=== PATIENT | male | born 1985 | race Caucasian/White ===

== ENCOUNTER 2018-02-12 09:11 | Inpatient (IN) | payer MEDICAID ==
[~2018-02-12] VITALS: Ht 180.3 cm; Wt 79.5 kg
[2018-02-12 09:56] LABS: BASOPHILS # (AUTO) 0.1 X10'3 (0-0.2); BASOPHILS % (AUTO) 0.6 % (0-1); EOSINOPHILS # (AUTO) 0.2 X10'3 (0-0.9); EOSINOPHILS % (AUTO) 1.8 % (0-6); HEMATOCRIT 44.7 % (42.0-52.0); LYMPHOCYTES # (AUTO) 1.1 X10'3 (1.1-4.8); LYMPHOCYTES % (AUTO) 12.4 % (21-51); MEAN CORPUSCULAR HEMOGLOBIN 30.3 PG (27.0-31.0); MEAN CORPUSCULAR HGB CONC 33.6 % (33.0-36.5); MEAN CORPUSCULAR VOLUME 90.3 FL (78-98); MEAN PLATELET VOLUME 9.4 FL (7.4-10.4); MONOCYTES # (AUTO) 0.4 X10'3 (0-0.9); MONOCYTES % (AUTO) 4.3 % (2-12); NEUTROPHILS # (AUTO) 7.3 X10'3 (1.8-7.7); NEUTROPHILS % (AUTO) 80.9 % (42-75); PLATELET COUNT 198 X10'3 (140-440); RED BLOOD COUNT 4.95 X10'6 (4.70-6.10); RED CELL DISTRIBUTION WIDTH 14.8 % (11.5-14.5)
[2018-02-12 10:08] LABS: ALANINE AMINOTRANSFERASE 193 U/L (12-78); ALBUMIN 3.8 G/DL (3.4-5.0); ALBUMIN/GLOBULIN RATIO 0.9 (1.1-1.5); ALKALINE PHOSPHATASE 128 IU/L (46-116); ANION GAP 13 (8-16); ASPARTATE AMINO TRANSFERASE 134 U/L (10-37); BILIRUBIN,TOTAL 0.4 MG/DL (0.1-1.0); BLOOD UREA NITROGEN 12 MG/DL (7-18); BUN/CREATININE RATIO 14.1 (5.4-32.0); CALCIUM 9.3 MG/DL (8.5-10.1); CHLORIDE 98 MMOL/L (99-107); CREATININE 0.85 MG/DL (0.60-1.10); GLUCOSE 129 MG/DL (70-104); SODIUM 137 MMOL/L (135-145); TOTAL CARBON DIOXIDE 26.4 MMOL/L (24-32); TOTAL PROTEIN 7.9 G/DL (6.4-8.2); eGFR > 90 ML/MIN
[2018-02-12 10:12] LABS: AMYLASE 143 U/L (25-115)
[2018-02-12 10:23] LABS: LIPASE 3191 U/L (73-393)
[2018-02-12 10:24] LABS: PROTHROMBIN TIME 9.3 SECONDS (9.0-12.0)
[2018-02-12] MEDS ORDERED: ondansetron/PF 4mg/2ml inj IV ONE ×2 (11:05→11:15)
[2018-02-12] MEDS ORDERED: morphine 4 MG/ML inj SYRINge IV ONE (11:05)
[2018-02-12] MEDS ORDERED: morphine 4 MG/ML inj SYRINge IV PRN (11:15)
[2018-02-12] MEDS ORDERED: HYDROmorphone 1 mg/ml syringe IV ONE (11:45)
[2018-02-12] MEDS ORDERED: LORazepam 2 mg/ml vial IV ONE (11:45)
[2018-02-12] MEDS ORDERED: potassium Cl 20 mEq SR tablet PO PRN (11:50)
[2018-02-12] MEDS ORDERED: HYDROcodone/acetaminophen 5mg/325mg tablet PO PRN (11:50)
[2018-02-12] MEDS ORDERED: magnesium hydroxide 30ml (MOM) UD suspension PO PRN (11:50)
[2018-02-12] MEDS ORDERED: HYDROmorphone 1 mg/ml syringe IV PRN (11:50)
[2018-02-12] MEDS ORDERED: magnesium 4gm in 100ml NS 100 ML IV PRN (11:50)
[2018-02-12] MEDS ORDERED: potassium Cl 40MEQ/NS 500ml 500 ML IV PRN ×2 (11:50)
[2018-02-12] MEDS ORDERED: acetaminophen 325mg tablet PO PRN ×2 (11:50)
[2018-02-12] MEDS ORDERED: ondansetron/PF 4mg/2ml inj IV PRN (11:50)
[2018-02-12] MEDS ORDERED: magnesium Cl slow-release 64mg tablet PO PRN (11:50)
[2018-02-12] MEDS ORDERED: mag hydrox/Alum hydrox/simeth 30ml oral suspension PO PRN (11:50)
[2018-02-12] MEDS ORDERED: normal saline 1000ml 1,000 ML IV ONE ×2 (12:05)
[2018-02-12] MEDS: dextrose 5%-1/2 normal saline 1,000 ML IV SCH ×2 (12:08→23:24)
[2018-02-12] MEDS: HYDROmorphone 1 mg/ml syringe IV PRN ×3 (13:25→21:40)
[2018-02-12] MEDS ORDERED: METH-603 PO (13:37)
[2018-02-12] MEDS ORDERED: PARO-62 PO (13:41)
[2018-02-12 15:09] LABS: CLARITY,URINE CLEAR (Clear); COLOR,URINE YELLOW (Yellow); GLUCOSE, URINE NEGATIVE (Neg); KETONES,URINE 15 mg/dl (Neg); LEUKOCYTE ESTERASE ,URINE NEGATIVE (Neg); NITRITES, URINE NEGATIVE (Neg); OCCULT BLOOD,URINE NEGATIVE (Neg); PH,URINE 7.5 (4.8-8.0); PROTEIN,URINE NEGATIVE (Neg); UROBILINOGEN,URINE 0.2 E.U/dL (0.2-1.0)
[2018-02-12 15:15] LABS: UA COLLECTION TYPE CLN CATCH MIDSTREAM
[2018-02-12 15:29] LABS: URINE AMPHETAMINE SCREEN NEGATIVE (Neg); URINE BARBITUATE SCREEN NEGATIVE (Neg); URINE BENZODIAZEPINES SCREEN NEGATIVE (Neg); URINE CANNABINOID SCREEN POSITIVE (Neg); URINE COCAINE SCREEN NEGATIVE (Neg); URINE METHADONE SCREEN POSITIVE (Neg); URINE OPIATE SCREEN POSITIVE (Neg); URINE PHENCYCLIDINE SCREEN NEGATIVE (Neg)
[2018-02-12 20:30] VITALS: BP 144/78
[2018-02-12] MEDS: HYDROcodone/acetaminophen 10/325mg tab PO PRN (20:30)
[2018-02-13] VITALS: BP 134/70
[2018-02-13] MEDS: HYDROcodone/acetaminophen 10/325mg tab PO PRN ×3 (00:59→14:39)
[2018-02-13] MEDS ORDERED: mag hydrox/Alum hydrox/simeth 30ml oral suspension PO PRN (01:15)
[2018-02-13] MEDS ORDERED: thiamine inj. 100 MG in normal saline 100ml IV soln 100 ML IV ONE (01:15)
[2018-02-13] MEDS ORDERED: haloperidol 5mg tablet PO PRN (01:15)
[2018-02-13] MEDS ORDERED: haloperidol lactate 5mg/ml inj IM PRN (01:15)
[2018-02-13] MEDS: LORazepam 2 mg/ml vial IV PRN ×5 (01:31→20:07)
[2018-02-13] MEDS: HYDROmorphone 1 mg/ml syringe IV PRN ×4 (04:08→21:33)
[2018-02-13 05:18] LABS: BASOPHILS % (AUTO) 0.4 % (0-1); EOSINOPHILS # (AUTO) 0.1 X10'3 (0-0.9); EOSINOPHILS % (AUTO) 0.7 % (0-6); HEMATOCRIT 41.7 % (42.0-52.0); HEMOGLOBIN 13.9 g/dl (14.0-17.9); LYMPHOCYTES # (AUTO) 1.1 X10'3 (1.1-4.8); LYMPHOCYTES % (AUTO) 11.1 % (21-51); MEAN CORPUSCULAR HEMOGLOBIN 30.2 PG (27.0-31.0); MEAN CORPUSCULAR HGB CONC 33.4 % (33.0-36.5); MEAN CORPUSCULAR VOLUME 90.4 FL (78-98); MEAN PLATELET VOLUME 9.9 FL (7.4-10.4); MONOCYTES # (AUTO) 0.6 X10'3 (0-0.9); MONOCYTES % (AUTO) 5.9 % (2-12); NEUTROPHILS # (AUTO) 8.4 X10'3 (1.8-7.7); NEUTROPHILS % (AUTO) 81.9 % (42-75); PLATELET COUNT 165 X10'3 (140-440); RED BLOOD COUNT 4.61 X10'6 (4.70-6.10); RED CELL DISTRIBUTION WIDTH 14.7 % (11.5-14.5); WHITE BLOOD COUNT 10.3 X10'3 (4.5-11.0)
[2018-02-13 05:22] LABS: ALANINE AMINOTRANSFERASE 117 U/L (12-78); ALBUMIN 2.8 G/DL (3.4-5.0); ALBUMIN/GLOBULIN RATIO 0.9 (1.1-1.5); ALKALINE PHOSPHATASE 91 IU/L (46-116); ANION GAP 7 (8-16); ASPARTATE AMINO TRANSFERASE 52 U/L (10-37); BILIRUBIN,TOTAL 0.6 MG/DL (0.1-1.0); BLOOD UREA NITROGEN 7 MG/DL (7-18); BUN/CREATININE RATIO 9.7 (5.4-32.0); CALCIUM 7.9 MG/DL (8.5-10.1); CHLORIDE 106 MMOL/L (99-107); CREATININE 0.72 MG/DL (0.60-1.10); GLUCOSE 120 MG/DL (70-104); MAGNESIUM 1.8 MG/DL (1.5-2.4); POTASSIUM 3.3 MMOL/L (3.5-5.1); SODIUM 140 MMOL/L (135-145); TOTAL CARBON DIOXIDE 26.9 MMOL/L (24-32); eGFR > 90 ML/MIN
[2018-02-13 05:24] LABS: LIPASE 4304 U/L (73-393)
[2018-02-13 07:00] VITALS: BP 117/79
[2018-02-13] MEDS: PARoxetine 20mg tablet PO SCH (07:19)
[2018-02-13] MEDS: potassium Cl 20 mEq SR tablet PO PRN ×3 (07:19→19:58)
[2018-02-13] MEDS: methadone 10mg tablet PO SCH (07:20)
[2018-02-13] MEDS: enoxaparin 40mg/0.4ml syringe SQ SCH (07:21)
[2018-02-13] MEDS: dextrose 5%-1/2 normal saline 1,000 ML IV SCH ×4 (07:50→19:59)
[2018-02-13] MEDS: K and/or MAG REPLACEMENT MC SCH (08:00)
[2018-02-13] MEDS ORDERED: folic acid inj. 2 MG, thiamine inj. 100 MG, MVI, adult No.4 with vit. K 10 ML in dextro... IV SCH ×4 (08:00)
[2018-02-13 11:00] VITALS: BP 127/75
[2018-02-13 18:45] VITALS: BP 129/82
[2018-02-13] MEDS: folic acid inj. 2 MG, thiamine inj. 100 MG, MVI, adult No.4 with vit. K 10 ML in dextro... IV SCH ×4 (19:58)
[2018-02-14 00:05] VITALS: BP_SYST 134; BP_SYST 138; BP_DIAS 62; BP_DIAS 72
[2018-02-14] MEDS: HYDROmorphone 1 mg/ml syringe IV PRN ×4 (01:32→19:00)
[2018-02-14 04:18] LABS: ALANINE AMINOTRANSFERASE 98 U/L (12-78); ALBUMIN 3.1 G/DL (3.4-5.0); ALBUMIN/GLOBULIN RATIO 0.8 (1.1-1.5); ALKALINE PHOSPHATASE 107 IU/L (46-116); AMYLASE 318 U/L (25-115); ANION GAP 7 (8-16); ASPARTATE AMINO TRANSFERASE 48 U/L (10-37); BILIRUBIN,TOTAL 0.6 MG/DL (0.1-1.0); BLOOD UREA NITROGEN 5 MG/DL (7-18); BUN/CREATININE RATIO 6.8 (5.4-32.0); CALCIUM 8.9 MG/DL (8.5-10.1); CHLORIDE 104 MMOL/L (99-107); CREATININE 0.74 MG/DL (0.60-1.10); GLUCOSE 104 MG/DL (70-104); MAGNESIUM 1.9 MG/DL (1.5-2.4); PHOSPHORUS 2.4 MG/DL (2.3-4.5); SODIUM 139 MMOL/L (135-145); TOTAL CARBON DIOXIDE 27.9 MMOL/L (24-32); TOTAL PROTEIN 6.8 G/DL (6.4-8.2); eGFR > 90 ML/MIN
[2018-02-14 04:19] LABS: POTASSIUM 4.4 MMOL/L (3.5-5.1)
[2018-02-14 04:33] LABS: BASOPHILS % (AUTO) 0.7 % (0-1); EOSINOPHILS # (AUTO) 0.2 X10'3 (0-0.9); EOSINOPHILS % (AUTO) 2.8 % (0-6); HEMATOCRIT 42.5 % (42.0-52.0); LYMPHOCYTES % (AUTO) 16.6 % (21-51); MEAN CORPUSCULAR HEMOGLOBIN 30.1 PG (27.0-31.0); MEAN CORPUSCULAR VOLUME 91.1 FL (78-98); MEAN PLATELET VOLUME 10.1 FL (7.4-10.4); MONOCYTES # (AUTO) 0.5 X10'3 (0-0.9); MONOCYTES % (AUTO) 8.1 % (2-12); NEUTROPHILS # (AUTO) 4.5 X10'3 (1.8-7.7); NEUTROPHILS % (AUTO) 71.8 % (42-75); PLATELET COUNT 144 X10'3 (140-440); RED BLOOD COUNT 4.67 X10'6 (4.70-6.10); RED CELL DISTRIBUTION WIDTH 14.5 % (11.5-14.5); WHITE BLOOD COUNT 6.3 X10'3 (4.5-11.0)
[2018-02-14 04:41] LABS: LIPASE 3188 U/L (73-393)
[2018-02-14] MEDS: dextrose 5%-1/2 normal saline 1,000 ML IV SCH ×4 (04:52→19:49)
[2018-02-14 07:03] VITALS: BP 129/69
[2018-02-14] MEDS: methadone 10mg tablet PO SCH (07:54)
[2018-02-14] MEDS: LORazepam 2 mg/ml vial IV PRN ×4 (07:54→22:51)
[2018-02-14] MEDS: PARoxetine 20mg tablet PO SCH (07:54)
[2018-02-14] MEDS: K and/or MAG REPLACEMENT MC SCH (08:00)
[2018-02-14] MEDS: enoxaparin 40mg/0.4ml syringe SQ SCH (08:00)
[2018-02-14 11:00] VITALS: BP 123/77
[2018-02-14] MEDS: HYDROcodone/acetaminophen 10/325mg tab PO PRN (13:42)
[2018-02-14 18:00] VITALS: BP 132/88
[2018-02-14] MEDS: folic acid inj. 2 MG, thiamine inj. 100 MG, MVI, adult No.4 with vit. K 10 ML in dextro... IV SCH ×4 (19:48)
[2018-02-15] VITALS: BP 137/77
[2018-02-15] MEDS: dextrose 5%-1/2 normal saline 1,000 ML IV SCH ×5 (00:52→21:14)
[2018-02-15] MEDS: LORazepam 2 mg/ml vial IV PRN ×2 (03:59→19:30)
[2018-02-15 05:11] LABS: BASOPHILS % (AUTO) 0.8 % (0-1); EOSINOPHILS # (AUTO) 0.2 X10'3 (0-0.9); EOSINOPHILS % (AUTO) 3.8 % (0-6); HEMATOCRIT 40.4 % (42.0-52.0); HEMOGLOBIN 13.6 g/dl (14.0-17.9); LYMPHOCYTES # (AUTO) 1.5 X10'3 (1.1-4.8); LYMPHOCYTES % (AUTO) 25.7 % (21-51); MEAN CORPUSCULAR HEMOGLOBIN 30.5 PG (27.0-31.0); MEAN CORPUSCULAR HGB CONC 33.7 % (33.0-36.5); MEAN CORPUSCULAR VOLUME 90.5 FL (78-98); MEAN PLATELET VOLUME 9.9 FL (7.4-10.4); MONOCYTES # (AUTO) 0.5 X10'3 (0-0.9); MONOCYTES % (AUTO) 8.9 % (2-12); NEUTROPHILS # (AUTO) 3.7 X10'3 (1.8-7.7); NEUTROPHILS % (AUTO) 60.8 % (42-75); PLATELET COUNT 157 X10'3 (140-440); RED BLOOD COUNT 4.46 X10'6 (4.70-6.10); RED CELL DISTRIBUTION WIDTH 14.3 % (11.5-14.5)
[2018-02-15 05:24] LABS: PROTHROMBIN TIME 10.5 SECONDS (9.0-12.0)
[2018-02-15 05:33] LABS: ALANINE AMINOTRANSFERASE 98 U/L (12-78); ALBUMIN 3.1 G/DL (3.4-5.0); ALBUMIN/GLOBULIN RATIO 0.8 (1.1-1.5); ALKALINE PHOSPHATASE 112 IU/L (46-116); ANION GAP 11 (8-16); ASPARTATE AMINO TRANSFERASE 63 U/L (10-37); BILIRUBIN,TOTAL 0.5 MG/DL (0.1-1.0); BLOOD UREA NITROGEN 5 MG/DL (7-18); BUN/CREATININE RATIO 6.1 (5.4-32.0); CALCIUM 8.7 MG/DL (8.5-10.1); CHLORIDE 103 MMOL/L (99-107); CREATININE 0.82 MG/DL (0.60-1.10); GLUCOSE 123 MG/DL (70-104); LIPASE 1403 U/L (73-393); MAGNESIUM 1.7 MG/DL (1.5-2.4); PHOSPHORUS 3.4 MG/DL (2.3-4.5); POTASSIUM 3.4 MMOL/L (3.5-5.1); SODIUM 140 MMOL/L (135-145); TOTAL CARBON DIOXIDE 25.7 MMOL/L (24-32); TOTAL PROTEIN 6.8 G/DL (6.4-8.2); eGFR > 90 ML/MIN
[2018-02-15 07:30] VITALS: BP 145/90
[2018-02-15] MEDS: enoxaparin 40mg/0.4ml syringe SQ SCH (07:32)
[2018-02-15] MEDS: PARoxetine 20mg tablet PO SCH (07:32)
[2018-02-15] MEDS: methadone 10mg tablet PO SCH (07:32)
[2018-02-15] MEDS: K and/or MAG REPLACEMENT MC SCH ×2 (08:00→12:15)
[2018-02-15] MEDS: potassium Cl 20 mEq SR tablet PO PRN (11:18)
[2018-02-15] MEDS: HYDROcodone/acetaminophen 10/325mg tab PO PRN (11:19)
[2018-02-15] MEDS: LORazepam 1 MG tablet PO PRN ×2 (11:20→15:19)
[2018-02-15 12:01] VITALS: BP 136/92
[2018-02-15] MEDS ORDERED: potassium Cl 40MEQ/NS 500ml 500 ML IV PRN ×2 (12:15)
[2018-02-15] MEDS ORDERED: potassium Cl 20 mEq SR tablet PO PRN ×2 (12:15)
[2018-02-15 20:00] VITALS: BP 137/75
[2018-02-15 23:30] VITALS: BP 134/81
[2018-02-16] MEDS: dextrose 5%-1/2 normal saline 1,000 ML IV SCH (03:12)
[2018-02-16] MEDS: LORazepam 2 mg/ml vial IV PRN (04:14)
[2018-02-16 05:11] LABS: BASOPHILS % (AUTO) 0.7 % (0-1); EOSINOPHILS # (AUTO) 0.3 X10'3 (0-0.9); EOSINOPHILS % (AUTO) 4.6 % (0-6); HEMATOCRIT 39.3 % (42.0-52.0); HEMOGLOBIN 13.1 g/dl (14.0-17.9); LYMPHOCYTES # (AUTO) 1.4 X10'3 (1.1-4.8); LYMPHOCYTES % (AUTO) 24.5 % (21-51); MEAN CORPUSCULAR HEMOGLOBIN 30.2 PG (27.0-31.0); MEAN CORPUSCULAR HGB CONC 33.3 % (33.0-36.5); MEAN CORPUSCULAR VOLUME 90.8 FL (78-98); MEAN PLATELET VOLUME 9.9 FL (7.4-10.4); MONOCYTES # (AUTO) 0.5 X10'3 (0-0.9); MONOCYTES % (AUTO) 9.4 % (2-12); NEUTROPHILS # (AUTO) 3.5 X10'3 (1.8-7.7); NEUTROPHILS % (AUTO) 60.8 % (42-75); PLATELET COUNT 163 X10'3 (140-440); RED BLOOD COUNT 4.33 X10'6 (4.70-6.10); RED CELL DISTRIBUTION WIDTH 14.3 % (11.5-14.5); WHITE BLOOD COUNT 5.7 X10'3 (4.5-11.0)
[2018-02-16 05:24] LABS: INR 1.1 INR; PROTHROMBIN TIME 10.8 SECONDS (9.0-12.0)
[2018-02-16 05:31] LABS: ALANINE AMINOTRANSFERASE 98 U/L (12-78); ALBUMIN 3.1 G/DL (3.4-5.0); ALBUMIN/GLOBULIN RATIO 0.9 (1.1-1.5); ALKALINE PHOSPHATASE 108 IU/L (46-116); ANION GAP 11 (8-16); ASPARTATE AMINO TRANSFERASE 57 U/L (10-37); BILIRUBIN,TOTAL 0.5 MG/DL (0.1-1.0); BLOOD UREA NITROGEN 5 MG/DL (7-18); BUN/CREATININE RATIO 6.3 (5.4-32.0); CALCIUM 8.8 MG/DL (8.5-10.1); CHLORIDE 104 MMOL/L (99-107); CREATININE 0.79 MG/DL (0.60-1.10); GLUCOSE 126 MG/DL (70-104); LIPASE 928 U/L (73-393); MAGNESIUM 1.8 MG/DL (1.5-2.4); PHOSPHORUS 3.7 MG/DL (2.3-4.5); POTASSIUM 3.5 MMOL/L (3.5-5.1); SODIUM 141 MMOL/L (135-145); TOTAL CARBON DIOXIDE 26.4 MMOL/L (24-32); TOTAL PROTEIN 6.6 G/DL (6.4-8.2); eGFR > 90 ML/MIN
[2018-02-16] MEDS: PARoxetine 20mg tablet PO SCH (07:13)
[2018-02-16] MEDS: methadone 10mg tablet PO SCH (07:14)
[2018-02-16] MEDS: enoxaparin 40mg/0.4ml syringe SQ SCH (07:14)
[2018-02-16] MEDS: K and/or MAG REPLACEMENT MC SCH ×2 (07:21→07:22)
[2018-02-16] MEDS ORDERED: folic acid 1mg tablet PO SCH (08:00)
[2018-02-16] MEDS ORDERED: thiamine 100mg tablet PO SCH (08:00)
[2018-02-16] MEDS ORDERED: multivitamins, therapeutics tablet PO SCH (08:00)
[2018-02-16 08:07] VITALS: BP 141/84
[2018-02-16] MEDS ORDERED: GABA-532 PO (11:21)
[2018-02-16 11:23] VITALS: BP 122/78
[2018-02-17] MEDS ORDERED: LORazepam 1 MG tablet PO PRN (01:15)
[2018-02-17] MEDS ORDERED: LORazepam 2 mg/ml vial IV PRN (01:15)
== END 2018-02-16 13:05 | disposition home or self-care (01) | DRG 282 ==
LOC: ER 09:14 → ED HOLD 11:50 → SUR 3N 20:10
PROVIDERS: ADMIT Hospitalist; ATTEND Family Medicine
DX: K85.20 Alcohol induced acute pancreatitis without necrosis or infection (principal); K76.0 Fatty (change of) liver, not elsewhere classified; R16.0 Hepatomegaly, not elsewhere classified; F10.288 Alcohol dependence with other alcohol-induced disorder; R79.89 Other specified abnormal findings of blood chemistry; F41.9 Anxiety disorder, unspecified; F17.200 Nicotine dependence, unspecified, uncomplicated; F12.90 Cannabis use, unspecified, uncomplicated; R74.8 Abnormal levels of other serum enzymes; Z79.899 Other long term (current) drug therapy; Z71.6 Tobacco abuse counseling
CPT/HCPCS: 36415; 76700; 80053; 80305; 81003; 82150; 82948; 83690; 83735; 84100; 85025; 85610; 87070; 96374; 96375; 96376; 97116; 97161; 97530; 99285; G0378; J1170; J1650; J2060; J2270; J2405; J3411; J3490; J7030; J7060

== ENCOUNTER 2019-01-09 21:01 | Emergency (ER) | payer MEDICAID ==
[~2019-01-09] VITALS: Ht 180.3 cm; Wt 79.0 kg
[~2019-01-09 21:01] MED LIST: GABA-532 PO; METH-603 PO; PARO-62 PO
[2019-01-09] MEDS ORDERED: NALO4SPR NASALCANN (21:45)
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
[2019-01-09 23:24] VITALS: BP 126/69
== END 2019-01-09 23:26 | disposition home or self-care (01) ==
LOC: ER 21:01
DX: T40.1X1A Poisoning by heroin, accidental (unintentional), initial encounter (principal); F12.90 Cannabis use, unspecified, uncomplicated; Z79.899 Other long term (current) drug therapy; Y92.89 Other specified places as the place of occurrence of the external cause
CPT/HCPCS: 93005; 99284

== ENCOUNTER 2019-02-25 14:48 | Emergency (ER) | payer MEDICAID ==
[~2019-02-25] VITALS: Ht 177.8 cm; Wt 77.0 kg
[~2019-02-25 14:48] MED LIST changes: +LIDOcaine 1% W/epiNEPHrine 1:100,000 20ml vial ONE; +NALO4SPR NASALCANN
--- NOTE | 2019-02-25 15:10 | NUR ---
1500 Not in lobby, late entry
--- NOTE | 2019-02-25 15:10 | NUR ---
Not in lobby
[2019-02-25 15:30] VITALS: BP 121/68
[2019-02-25] MEDS ORDERED: DOXY100C43 PO (15:55)
== END 2019-02-25 16:33 | disposition home or self-care (01) ==
LOC: ER 14:48
DX: L02.11 Cutaneous abscess of neck (principal); F12.90 Cannabis use, unspecified, uncomplicated; F15.90 Other stimulant use, unspecified, uncomplicated; F11.90 Opioid use, unspecified, uncomplicated; Z79.899 Other long term (current) drug therapy
CPT/HCPCS: 10060; 99283

== ENCOUNTER 2019-03-17 12:10 | Emergency (ER) | payer MEDICAID ==
[~2019-03-17] VITALS: Ht 177.8 cm; Wt 76.8 kg
[~2019-03-17 12:10] MED LIST changes: -LIDOcaine 1% W/epiNEPHrine 1:100,000 20ml vial ONE
[2019-03-17 12:25] VITALS: BP 130/67
[2019-03-17] MEDS ORDERED: CLIN-90 PO (13:27)
== END 2019-03-17 13:45 | disposition home or self-care (01) ==
LOC: ER 12:10
DX: S80.811A Abrasion, right lower leg, initial encounter (principal); L03.221 Cellulitis of neck; F12.90 Cannabis use, unspecified, uncomplicated; F15.90 Other stimulant use, unspecified, uncomplicated; F11.90 Opioid use, unspecified, uncomplicated; F10.99 Alcohol use, unspecified with unspecified alcohol-induced disorder; Z79.899 Other long term (current) drug therapy; X58.XXXA Exposure to other specified factors, initial encounter; Y93.89 Activity, other specified; Y92.89 Other specified places as the place of occurrence of the external cause; Y99.8 Other external cause status; Y90.9 Presence of alcohol in blood, level not specified
CPT/HCPCS: 99283

== ENCOUNTER 2019-03-25 20:44 | Emergency (ER) | payer MEDICAID ==
[~2019-03-25] VITALS: Ht 177.8 cm; Wt 81.8 kg
[~2019-03-25 20:44] MED LIST changes: +CLIN-90 PO
[2019-03-25 21:37] LABS: BASOPHILS # (AUTO) 0.1 X10'3 (0-0.2); BASOPHILS % (AUTO) 0.7 % (0-1); EOSINOPHILS # (AUTO) 0.1 X10'3 (0-0.9); EOSINOPHILS % (AUTO) 0.9 % (0-6); HEMOGLOBIN 13.9 g/dl (14.0-17.9); LYMPHOCYTES # (AUTO) 1.7 X10'3 (1.1-4.8); LYMPHOCYTES % (AUTO) 11.1 % (21-51); MEAN CORPUSCULAR HEMOGLOBIN 28.3 PG (27.0-31.0); MEAN CORPUSCULAR VOLUME 85.7 FL (78-98); MEAN PLATELET VOLUME 8.3 FL (7.4-10.4); MONOCYTES # (AUTO) 0.9 X10'3 (0-0.9); MONOCYTES % (AUTO) 5.9 % (2-12); NEUTROPHILS # (AUTO) 12.4 X10'3 (1.8-7.7); NEUTROPHILS % (AUTO) 81.4 % (42-75); PLATELET COUNT 351 X10'3 (140-440); WHITE BLOOD COUNT 15.2 X10'3 (4.5-11.0)
[2019-03-25 21:43] LABS: ALANINE AMINOTRANSFERASE 53 U/L (12-78); ALBUMIN 3.9 G/DL (3.4-5.0); ALBUMIN/GLOBULIN RATIO 0.8 (1.1-1.5); ALKALINE PHOSPHATASE 82 IU/L (46-116); ANION GAP 8 (8-16); ASPARTATE AMINO TRANSFERASE 22 U/L (10-37); BILIRUBIN,TOTAL 0.6 MG/DL (0.1-1.0); BLOOD UREA NITROGEN 12 MG/DL (7-18); BUN/CREATININE RATIO 12.5 (5.4-32.0); CALCIUM 9.1 MG/DL (8.5-10.1); CHLORIDE 102 MMOL/L (99-107); CREATININE 0.96 MG/DL (0.60-1.10); GLUCOSE 98 MG/DL (70-104); PARTIAL THROMBOPLASTIN TIME 34 SECONDS (22-32); POTASSIUM 3.1 MMOL/L (3.5-5.1); SODIUM 141 MMOL/L (135-145); TOTAL CARBON DIOXIDE 31.3 MMOL/L (24-32); TOTAL PROTEIN 8.6 G/DL (6.4-8.2); eGFR > 90 ML/MIN
[2019-03-25] MEDS ORDERED: DOXY100C43 PO (22:13)
[2019-03-25] MEDS ORDERED: CEPH250T PO (22:13)
[2019-03-25 22:17] LABS: CLARITY,URINE CLEAR (Clear); COLOR,URINE YELLOW (Yellow); GLUCOSE, URINE NEGATIVE (Neg); KETONES,URINE NEGATIVE (Neg); LEUKOCYTE ESTERASE ,URINE NEGATIVE (Neg); NITRITES, URINE NEGATIVE (Neg); OCCULT BLOOD,URINE NEGATIVE (Neg); PROTEIN,URINE NEGATIVE (Neg); UROBILINOGEN,URINE 0.2 E.U/dL (0.2-1.0)
[2019-03-25 22:26] LABS: UA COLLECTION TYPE CLN CATCH MIDSTREAM
[2019-03-25 22:44] VITALS: BP 138/70
== END 2019-03-25 22:45 | disposition home or self-care (01) ==
LOC: ER 20:45
DX: L03.116 Cellulitis of left lower limb (principal); F17.200 Nicotine dependence, unspecified, uncomplicated; F12.90 Cannabis use, unspecified, uncomplicated; F15.90 Other stimulant use, unspecified, uncomplicated; F11.90 Opioid use, unspecified, uncomplicated; Z79.2 Long term (current) use of antibiotics; Z79.899 Other long term (current) drug therapy
CPT/HCPCS: 36415; 71045; 80053; 81003; 83605; 84145; 85025; 85610; 85730; 87040; 99284

== ENCOUNTER 2021-11-02 23:01 | Emergency (ER) | payer MEDICAID ==
[~2021-11-02] VITALS: Ht 177.8 cm; Wt 77.3 kg
[~2021-11-02 23:01] MED LIST changes: -CLIN-90 PO; +CLIN-97 PO
[2021-11-03 00:58] VITALS: BP 158/92
[2021-11-03] MEDS ORDERED: bisacodyl 10mg suppository rectal RC ONE (05:25)
[2021-11-03] MEDS ORDERED: magnesium citrate 296ml oral solution PO ONE (05:40)
[2021-11-03] MEDS: normal saline 1000ML IV soln IVB ONE ×2 (05:43→06:05)
--- NOTE | 2021-11-03 06:05 | NUR ---
AFTER DULCOLAX SUPP WAS GIVEN. PATIENT WENT TO BATHROOM AND HAD GOOD RESULTS. PATIENT REFUSES IV FLUIDS AND WOULD LIKE DISCHARGE. DC INSTRUCTIONS GIVEN TO PATIENT AND DR. VANEGAS AWARE THAT PATIENT DOES NOT WANT TO STAY FOR IV FLUIDS.
[2021-11-03] MEDS ORDERED: methylnaltrexone br 12mg/0.6ml inj***SubQ only SQ ONE (07:00)
== END 2021-11-03 06:07 | disposition home or self-care (01) ==
LOC: ER 23:01
DX: K56.41 Fecal impaction (principal); K59.00 Constipation, unspecified; F15.10 Other stimulant abuse, uncomplicated; F12.10 Cannabis abuse, uncomplicated; Z79.1 Long term (current) use of non-steroidal anti-inflammatories (NSAID); Z79.899 Other long term (current) drug therapy
CPT/HCPCS: 99283; J7030

== ENCOUNTER 2022-01-31 09:15 | Emergency (ER) | payer MEDICAID ==
[~2022-01-31] VITALS: Ht 177.8 cm; Wt 72.7 kg
[~2022-01-31 09:15] MED LIST changes: +PARO-141 PO; -PARO-62 PO
[2022-01-31] MEDS ORDERED: dexamethasone sod phosphate 10mg/ml inj IV STA (09:26)
[2022-01-31] MEDS ORDERED: ondansetron/PF 4mg/2ml inj IV ONE (09:30)
[2022-01-31] MEDS ORDERED: normal saline 1000ML IV soln IVB ONE (09:30)
[2022-01-31] MEDS ORDERED: ketorolac trometh. 30mg/ml inj. IV ONE (09:30)
[2022-01-31] MEDS ORDERED: ONDA4TAB12 PO (09:45)
[2022-01-31 10:17] VITALS: BP 131/73
== END 2022-01-31 10:23 | disposition home or self-care (01) ==
LOC: ER 09:15
DX: J09.X2 Influenza due to identified novel influenza A virus with other respiratory manifestations (principal); R11.0 Nausea; E86.0 Dehydration; R05.9 Cough, unspecified; R53.1 Weakness; F17.200 Nicotine dependence, unspecified, uncomplicated; F12.90 Cannabis use, unspecified, uncomplicated; F15.90 Other stimulant use, unspecified, uncomplicated; F11.90 Opioid use, unspecified, uncomplicated; Z72.89 Other problems related to lifestyle; Z79.2 Long term (current) use of antibiotics; Z79.899 Other long term (current) drug therapy
CPT/HCPCS: 71045; 96361; 96374; 96375; 99284; J1100; J1885; J2405; J7030

== ENCOUNTER 2023-09-20 10:46 | Emergency (ER) | payer MEDICAID ==
[~2023-09-20] VITALS: Ht 177.8 cm; Wt 58.0 kg
[~2023-09-20 10:46] MED LIST changes: +ONDA-243 PO
[2023-09-20 11:46] VITALS: BP 115/74; PULSE 67; RESP 14; TEMP 97.9; O2SAT 99
== END 2023-09-20 11:48 | disposition home or self-care (01) ==
LOC: ER 10:47
DX: S62.336A Displaced fracture of neck of fifth metacarpal bone, right hand, initial encounter for closed fracture (principal); F12.90 Cannabis use, unspecified, uncomplicated; F15.90 Other stimulant use, unspecified, uncomplicated; Z79.2 Long term (current) use of antibiotics; Z79.899 Other long term (current) drug therapy; X58.XXXA Exposure to other specified factors, initial encounter; Y93.89 Activity, other specified; Y92.89 Other specified places as the place of occurrence of the external cause; Y99.8 Other external cause status
CPT/HCPCS: 29125; 73130; 99283; A6449

== ENCOUNTER 2024-11-15 02:07 | Emergency (ER) | payer MEDICAID ==
[~2024-11-15] VITALS: Ht 177.8 cm; Wt 79.4 kg
[~2024-11-15 02:07] MED LIST changes: +CLIN-224 PO; -CLIN-97 PO
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
[2024-11-15] MEDS: LIDOcaine 1% W/epiNEPHrine 1:100,000 20ml vial IJ ONE (03:03)
[2024-11-15] MEDS: buprenorphine/naloxone 8MG-2MG SUBlingual film SL ONE (04:18)
[2024-11-15 04:20] LABS: MEAN PLATELET VOLUME 9.3 FL (7.4-10.4); RED CELL DISTRIBUTION WIDTH 13.4 % (11.5-14.5)
[2024-11-15 05:50] VITALS: BP 128/78; PULSE 70; RESP 18; TEMP 98.6; O2SAT 99
== END 2024-11-15 05:53 | disposition home or self-care (01) ==
LOC: ER 02:08
DX: I97.620 Postprocedural hemorrhage of a circulatory system organ or structure following other procedure (principal); F12.90 Cannabis use, unspecified, uncomplicated; F15.90 Other stimulant use, unspecified, uncomplicated; F11.90 Opioid use, unspecified, uncomplicated; Z79.899 Other long term (current) drug therapy
CPT/HCPCS: 36415; 85025; 96372; 99283; J3490; J7030; A6258; A6449

== ENCOUNTER 2024-11-23 11:50 | Emergency (ER) | payer MEDICAID ==
[~2024-11-23] VITALS: Ht 177.8 cm; Wt 79.3 kg
[2024-11-23 11:57] VITALS: BP 124/67; PULSE 72; RESP 18; O2SAT 100
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
[2024-11-23 12:43] VITALS: TEMP 98.3
== END 2024-11-23 12:44 | disposition home or self-care (01) ==
LOC: ER 11:50
DX: S21.011D Laceration without foreign body of right breast, subsequent encounter (principal); F12.90 Cannabis use, unspecified, uncomplicated; F15.90 Other stimulant use, unspecified, uncomplicated; F10.90 Alcohol use, unspecified, uncomplicated; F11.90 Opioid use, unspecified, uncomplicated; Z79.899 Other long term (current) drug therapy; Y90.9 Presence of alcohol in blood, level not specified; X58.XXXD Exposure to other specified factors, subsequent encounter
CPT/HCPCS: 99281; 99282

== ENCOUNTER 2024-11-26 16:36 | Emergency (ER) | payer MEDICAID ==
[~2024-11-26] VITALS: Ht 177.8 cm; Wt 78.8 kg
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
[2024-11-26 17:54] VITALS: BP 130/72; PULSE 68; RESP 18; TEMP 97.8; O2SAT 98
== END 2024-11-26 17:58 | disposition home or self-care (01) ==
LOC: ER 16:37
DX: S29.0 Injury of muscle and tendon at thorax level (principal); X58.XXXD Exposure to other specified factors, subsequent encounter
CPT/HCPCS: 99281; 99282; A6449

== ENCOUNTER → 2024-11-29 | Emergency (ER) | payer MEDICAID ==
[~2024-11-29] VITALS: Ht 177.8 cm; Wt 81.4 kg
[2024-11-29 14:08] VITALS: BP 138/71; PULSE 73; RESP 18; TEMP 98.5; O2SAT 99
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
== END | disposition home or self-care (01) ==
LOC: ER 14:03
DX: S21.111D Laceration without foreign body of right front wall of thorax without penetration into thoracic cavity, subsequent encounter (principal); X58.XXXD Exposure to other specified factors, subsequent encounter
CPT/HCPCS: 99282